=== PATIENT | male | born 1990 | race Caucasian/White ===

== ENCOUNTER 2024-08-04 14:14 | Emergency (ER) | payer OTHER, SELFPAY ==
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
[2024-08-04 14:18] VITALS: BP 150/90; PULSE 88; O2SAT 98
[2024-08-04 14:23] VITALS: BP 139/85; PULSE 82; RESP 18; TEMP 36.6; O2SAT 99; BMI 27.0
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
[2024-08-04 19:05] VITALS: BP 133/74; PULSE 70; RESP 16; TEMP 36.4; O2SAT 99
[2024-08-04 19:08] VITALS: BP 133/74; PULSE 70; RESP 16; TEMP 36.4; O2SAT 99
== END 2024-08-04 19:41 | disposition home or self-care (01) ==
PROVIDERS: Emergency Provider Emergency Medicine Emergency Medical Services; PCP Hospitalist
DX: S06.0XAA Concussion with loss of consciousness status unknown, initial encounter (principal); V43.52XA Car driver injured in collision with other type car in traffic accident, initial encounter; W22.10XA Striking against or struck by unspecified automobile airbag, initial encounter; Y93.9 Activity, unspecified; Y92.89 Other specified places as the place of occurrence of the external cause; Y99.9 Unspecified external cause status; R42 Dizziness and giddiness; M54.2 Cervicalgia
CPT/HCPCS: 70450; 72125; 99284

== ENCOUNTER → 2024-08-04 14:28 | Outpatient (BNV) | payer SELFPAY | PROVIDERS: Visit Provider Radiology Diagnostic Radiology | DX: M54.2 Cervicalgia (principal); R42 Dizziness and giddiness; G47.51 Confusional arousals | CPT/HCPCS: 70450; 72125 ==